=== PATIENT | male | born 1975 | race Caucasian/White ===

== ENCOUNTER 2017-07-04 13:49 | Emergency (ER) | END 2017-07-04 14:50 | disposition home or self-care (01) ==

== ENCOUNTER 2018-06-22 13:03 | Emergency (ER) | payer BC, MEDICAID ==
[~2018-06-22] VITALS: Wt 68.2 kg
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
[2018-06-22] MEDS ORDERED: ONDANSETRON 4 MG INJ IV STA (13:53)
[2018-06-22] MEDS ORDERED: morphine 4 MG/ML VIAL IV STA (13:53)
[2018-06-22] MEDS ORDERED: HYDR-4011 PO (16:29)
[2018-06-22] MEDS ORDERED: TAMS-14 PO (16:30)
[2018-06-22 16:46] VITALS: BP 120/89; PULSE 68; RESP 18
== END 2018-06-22 16:47 | disposition home or self-care (01) ==
LOC: E/R 13:03
DX: N20.1 Calculus of ureter (principal); K80.20 Calculus of gallbladder without cholecystitis without obstruction
CPT/HCPCS: 36415; 74176; 80053; 80307; 81003; 83690; 85025; 93005; 96374; 96375; 99285; J2270; J2405

== ENCOUNTER 2018-06-23 08:52 | Emergency (ER) | payer SELFPAY ==
[~2018-06-23] VITALS: Ht 167.6 cm; Wt 66.0 kg
[~2018-06-23 08:52] MED LIST: HYDR-4011 PO; TAMS-14 PO
[2018-06-23 09:01] VITALS: BP 143/82; PULSE 65; RESP 19; Ht 167.6 cm; Wt 66.0 kg
== END 2018-06-23 10:59 | disposition left against medical advice (07) ==
LOC: FTE 08:52
DX: Z53.21 Procedure and treatment not carried out due to patient leaving prior to being seen by health care provider (principal)

== ENCOUNTER 2018-09-26 09:09 | Day surgery (SDC) | payer BC ==
[~2018-09-26] VITALS: Ht 167.6 cm; Wt 63.4 kg
[2018-09-26] VITALS (13 sets, daily range): BP systolic 103–133; BP diastolic 63–77; PULSE 56–91; RESP 11–20; Ht 167.6 cm; Wt 63.4 kg
[2018-09-26] MEDS ORDERED: SOD CHLORIDE 0.9% 1,000 ML IV ONE (10:30)
[2018-09-26] MEDS ORDERED: CEFAZOLIN 2 GM/50 ML (PMX) 50 ML IVPB ONE (10:30)
[2018-09-26] MEDS ORDERED: BUPIVACAINE 0.25% (MPF) 30 ML INJ ONE (12:34)
--- NOTE | 2018-09-26 12:41 | PREAC ---
Date/Time of Note Date/Time of Note DATE: 09/26/18 TIME: 12:40 Anesthesia Eval and Record Evaluation Time Pre-Procedure Interview DATE: 09/26/18 TIME: 12:40 Age 43 Sex male NPO: 8 hrs Preoperative diagnosis Left scalp mass Planned procedure Excision of mass Past Medical History Past Medical History: None Surgery & Anesthesia Issues No known issue Meds Anticoagulation: No Beta Senait within 24 hr: No Reason Beta Senait not given: Pt. not on B-Senait Discontinued Scripts Tamsulosin Hcl* (Flomax*) 0.4 Mg Cap.er.24h, 0.4 MG PO DAILY, #10 CAP Prov:CHRISTO MUÑIZ MD 06/22/18 Hydrocodone/Acetaminophen ([place] 5-325 Tablet) 1 Each Tablet, 1 TAB PO Q6H PRN for PAIN, #5 TAB Prov:CHRISTO MUÑIZ MD 06/22/18 Current Medications Sodium Chloride 1,000 ml @ 75 mls/hr [id number] ONCE IV ; Start 09/26/18 at 10:30; Stop 09/26/18 at 23:49 Meds reviewed: Yes Allergies Coded Allergies: No Known Drug Allergies (Verified Allergy, Unknown, 09/26/18) Allergies Reviewed: Yes Labs/Studies Labs Reviewed: Reviewed by anesthesiologist Result Diagram: 09/26/18 0940 09/26/18 0940 Laboratory Tests 09/26/18 09:40 test: N/A Pre-procedure Exam Last vitals Vital Signs Date Temp Pulse Resp B/P (MAP) Pulse Ox O2 O2 Flow FiO2 Time Delivery Rate 09/26/18 98.8 60 16 110/71 100 Room Air 09:53 (84) Airway: Adequate mouth opening Mallampati: Mallampati I Teeth: Normal Lung: Normal Heart: Normal ASA Physical Status ASA physical status: 1 Emergency: None Planned Anesthetic General/MAC: LMA Planned Pain Management Other neuraxial med Pre-operative Attestations Prior to commencing anesthesia and surgery, the patient was re-evaluated, there was verification of: *The patient's identity *The results of appropriate recent lab work and preoperative vital signs *The above evaluation not changing prior to induction *Anesthetic plan, risk benefits, alternative and complications discussed with patient/family; questions answered; patient/family understands, accepts and wis hes to proceed. ELIZABETH BRITT MD Sep 26, 2018 12:41
[2018-09-26] MEDS ORDERED: CEFAZOLIN 1 GM INJ ONE (12:49)
[2018-09-26] MEDS ORDERED: LIDOCAINE 2% (SDV) 5 ML INJ ONE (12:49)
[2018-09-26] MEDS ORDERED: PROPOFOL 20 ML ONE (12:49)
[2018-09-26] MEDS ORDERED: FENTAnyl 50 MCG/ML VIAL ONE (13:02)
[2018-09-26] MEDS ORDERED: BACITRACIN 0.9 GM OINT ONE (13:21)
--- NOTE | 2018-09-26 13:27 | OPR ---
Date/Time of Note Date/Time of Note DATE: 09/26/18 TIME: 13:25 Operative Report Procedure Date: Sep 26, 2018 Preoperative Diagnosis posterior scalp mass Postoperative Diagnosis same Operation/Procedure Performed 1. excision of posterior scalp mass 3 cm mass 3 cm incision 2. localized adjacent tissue transfer with the use of skin flaps 6 sq cm defect of the scalp 3. therapeutic injection of subcutaneous local anesthesia Surgeon see signature line Micro Paleontologist none Anesthesia Type: general Estimated Blood Loss: 0 - 10 ml's Transfusion none Specimen posterior scalp mass Grafts/Implants none Complications none Pt Condition Post Procedure: stable Indications This is a 43-year-old male with posterior scalp mass. He requires surgical excision. Risks alternatives benefits and percent were discussed the patient. Patient expressed understanding and consents to the operation. Procedure Description Patient is taken to the OR and prepped and draped in usual sterile fashion. Surgical time was performed. IV antibiotics were given. Elliptical incision was made at the 15 blade over the scalp mass. Dissection cautery was carried onto the mass and the mass was circumferentially excised. Good hemostasis status. Due to the tissue defect localized adjacent to his transfer with use of skin flaps was performed. Multilayer closure with interrupted 3-0 Vicryl running 4-0 Monocryl. Therapeutic contains local anesthesia was injected at the incision site. Bacitracin ointment is applied. Wilberto FELDMAN Sep 26, 2018 13:27
[2018-09-26] MEDS ORDERED: HYDROCODONE/APAP (5/325) TAB PO ONE (13:30)
[2018-09-26] MEDS ORDERED: ONDANSETRON 4 MG INJ IV PRN (14:00)
[2018-09-26] MEDS ORDERED: HYDROmorphONE 1 MG/5 ML IV SYRINGE IV PRN ×3 (14:00)
[2018-09-26] MEDS ORDERED: FENTAnyl 50 MCG/ML VIAL IV PRN ×3 (14:00)
[2018-09-26] MEDS ORDERED: hydrALAzine 20 MG INJ IV PRN (14:00)
[2018-09-26] MEDS ORDERED: MIDAZOLAM 1 MG/ML 2 ML INJ IV PRN (14:00)
[2018-09-26] MEDS ORDERED: EPHEDrine SULFATE 50 MG/5 ML SYG IV PRN (14:00)
[2018-09-26] MEDS ORDERED: OXYCODONE/ACETAMINOPHEN (5/325) TAB PO PRN ×2 (14:00)
[2018-09-26] MEDS ORDERED: LABETALOL HCL 20MG INJ IV PRN (14:00)
[2018-09-26] MEDS ORDERED: DIPHENHYDRAMINE 50 MG INJ IV PRN (14:00)
[2018-09-26] MEDS ORDERED: METOCLOPRAMIDE 10 MG INJ IV PRN (14:00)
[2018-09-26] MEDS ORDERED: MEPERIDINE 25 MG INJ IV PRN (14:00)
--- NOTE | 2018-09-26 14:27 | PAC ---
Date/Time of Note Date/Time of Note DATE: 09/26/18 TIME: 14:26 Post-Anesthesia Notes Post-Anesthesia Note Last documented vital signs Vital Signs Date Temp Pulse Resp B/P (MAP) Pulse Ox O2 O2 Flow FiO2 Time Delivery Rate 09/26/18 98.0 64 18 117/74 99 Room Air 14:20 (88) Activity: WNL Respiratory function: WNL Cardiovascular function: WNL Mental status: Baseline Pain reasonably controlled: Yes Hydration appropriate: Yes Nausea/Vomiting absent: Yes ELIZABETH BRITT MD Sep 26, 2018 14:27
== END 2018-09-26 15:05 | disposition home or self-care (01) ==
LOC: SDS 09:09
PROVIDERS: ATTEND Surgery
DX: D23.4 Other benign neoplasm of skin of scalp and neck (principal)
CPT/HCPCS: 14020; 80053; 85025; 85610; 85730; 88307; J0690; J2175; J2405; J3010; Z7512; Z7610